=== PATIENT | male | born 1970 | race Caucasian/White ===

== ENCOUNTER 2021-05-17 12:25 | Emergency (ER) | payer OTHER ==
[~2021-05-17] VITALS: Wt 111.1 kg
[2021-05-17] MEDS ORDERED: CEPHALEXIN500 M1 PO (15:42)
== END 2021-05-17 15:53 | disposition home or self-care (01) ==
LOC: ED 12:25
DX: S61.431A Puncture wound without foreign body of right hand, initial encounter (principal); W22.8XXA Striking against or struck by other objects, initial encounter; Y93.89 Activity, other specified; Y92.89 Other specified places as the place of occurrence of the external cause; Y99.8 Other external cause status